=== PATIENT | male | born 1945 | race Caucasian/White ===

== ENCOUNTER → 2016-09-14 | Outpatient (REF) | payer MEDICARE, OTHER ==
[~2016-09-14] MED LIST: /ATOR40TA PO; ACTO45TA15 PO; ASPI81TA85 PO; BENA20TA2 PO; GLIP5TAB2 PO; LASI40TA PO; METF500T PO; METO100T PO
[2016-09-14 17:45] LABS: MEAN CORPUSCULAR HEMOGLOBIN 33.4 pg (27.0-33.0); MEAN CORPUSCULAR HGB CONC 33.9 g/dl (32.0-36.5); MEAN CORPUSCULAR VOLUME 98.6 fl (80.0-96.0); RED CELL DISTRIBUTION WIDTH 12.6 % (11.5-14.5); WHITE BLOOD COUNT 14.5 K/mm3 (4.0-10.0)
[2016-09-14 17:55] LABS: ALBUMIN 3.9 GM/DL (3.2-5.2); ALBUMIN/GLOBULIN RATIO 1.03 (1.00-1.93); CREATININE FOR GFR 1.82 MG/DL (0.70-1.30); GLOMERULAR FILTRATION RATE 39.5 (>49); POTASSIUM SERUM 4.5 MEQ/L (3.5-5.1); TOTAL PROTEIN 7.7 GM/DL (6.4-8.2)
== END ==
LOC: M SFHCPLAZ 15:28
PROVIDERS: ATTEND Internal Medicine
DX: N18.3 Chronic kidney disease, stage 3 (moderate) (principal); E11.9 Type 2 diabetes mellitus without complications

== ENCOUNTER → 2016-09-29 | Outpatient (REF) | payer MEDICARE, OTHER ==
[2016-09-29 12:07] LABS: CALCIUM LEVEL 9.1 MG/DL (8.8-10.2); CREATININE FOR GFR 1.44 MG/DL (0.70-1.30); GLOMERULAR FILTRATION RATE 51.8 (>49); MAGNESIUM LEVEL 1.9 MG/DL (1.8-2.4)
== END ==
LOC: M SFHCPLAZ 10:14
PROVIDERS: ATTEND Internal Medicine
DX: N18.3 Chronic kidney disease, stage 3 (moderate) (principal)

== ENCOUNTER → 2017-02-23 | Outpatient (REF) | payer MEDICARE, OTHER ==
[2017-02-23 13:45] LABS: ALBUMIN 4.2 GM/DL (3.2-5.2); ALBUMIN/GLOBULIN RATIO 1.27 (1.00-1.93); BILIRUBIN,TOTAL 0.6 MG/DL (0.2-1.0); CALCIUM LEVEL 9.5 MG/DL (8.8-10.2); CREATININE FOR GFR 1.7 MG/DL (0.70-1.30); GLOMERULAR FILTRATION RATE 42.8 (>49); MAGNESIUM LEVEL 1.7 MG/DL (1.8-2.4); TOTAL PROTEIN 7.5 GM/DL (6.4-8.2)
== END ==
LOC: M SFHCPLAZ 08:51
PROVIDERS: ATTEND Internal Medicine
DX: N18.3 Chronic kidney disease, stage 3 (moderate) (principal); E11.40 Type 2 diabetes mellitus with diabetic neuropathy, unspecified; I12.9 Hypertensive chronic kidney disease with stage 1 through stage 4 chronic kidney disease, or unspecified chronic kidney disease

== ENCOUNTER → 2017-11-30 | Outpatient (REF) | payer MEDICARE, OTHER ==
[2017-11-30 12:11] LABS: HEMOGLOBIN 10.9 g/dl (14.0-18.0); MEAN CORPUSCULAR HEMOGLOBIN 32.3 pg (27.0-33.0); MEAN CORPUSCULAR HGB CONC 32.1 g/dl (32.0-36.5); MEAN CORPUSCULAR VOLUME 100.9 fl (80.0-96.0); PLATELET COUNT, AUTOMATED 271 10^3/uL (150-450); RED BLOOD COUNT 3.37 10^6/uL (4.30-6.10); RED CELL DISTRIBUTION WIDTH 14.1 % (11.5-14.5); WHITE BLOOD COUNT 9.1 10^3/uL (4.0-10.0)
[2017-11-30 12:36] LABS: ALBUMIN 3.8 GM/DL (3.2-5.2); ALBUMIN/GLOBULIN RATIO 1.23 (1.00-1.93); ALKALINE PHOSPHATASE 103 U/L (45-117); ALT/SGPT 12 U/L (12-78); ANION GAP 6 MEQ/L (8-16); AST/SGOT 21 U/L (7-37); BILIRUBIN,TOTAL 0.4 MG/DL (0.2-1.0); BLOOD UREA NITROGEN 27 MG/DL (7-18); CALCIUM LEVEL 8.8 MG/DL (8.8-10.2); CARBON DIOXIDE LEVEL 28 MEQ/L (21-32); CHLORIDE LEVEL 105 MEQ/L (98-107); CREATININE FOR GFR 1.55 MG/DL (0.70-1.30); GLOMERULAR FILTRATION RATE 47.4 (>42); GLUCOSE, FASTING 128 MG/DL (70-100); MAGNESIUM LEVEL 1.6 MG/DL (1.8-2.4); POTASSIUM SERUM 4.9 MEQ/L (3.5-5.1); SODIUM LEVEL 139 MEQ/L (136-145); TOTAL PROTEIN 6.9 GM/DL (6.4-8.2); URIC ACID 5.2 MG/DL (3.5-7.2)
[2017-11-30 14:16] LABS: ESTIMATED AVERAGE GLUCOSE 197 MG/DL (60-110); HEMOGLOBIN A1c 8.5 %
== END ==
LOC: M SFHCPLAZ 08:04
DX: N18.3 Chronic kidney disease, stage 3 (moderate) (principal); I10 Essential (primary) hypertension; E11.40 Type 2 diabetes mellitus with diabetic neuropathy, unspecified; E79.0 Hyperuricemia without signs of inflammatory arthritis and tophaceous disease
CPT/HCPCS: 83735

== ENCOUNTER → 2017-12-06 | Outpatient (REF) | payer MEDICARE, OTHER ==
[2017-12-06 12:18] LABS: FOLATE 10.5 NG/ML; VITAMIN B12 LEVEL 899 PG/ML
[2017-12-06 12:19] LABS: FERRITIN 160 NG/ML (26-388); IRON (FE) 81 UG/DL (65-175); PERCENT SATURATION 25.3 % (19.7-50.0); TOTAL IRON BINDING CAPACITY 320 UG/DL (250-450)
== END ==
LOC: M SFHCPLAZ 09:53
DX: D64.9 Anemia, unspecified (principal)
CPT/HCPCS: 82746

== ENCOUNTER → 2018-03-31 | Outpatient (REF) | payer MEDICARE, OTHER ==
[2018-03-31 12:41] LABS: HEMATOCRIT 35.1 % (42.0-52.0); HEMOGLOBIN 11.5 g/dl (13.5-17.5); MEAN CORPUSCULAR HEMOGLOBIN 32.9 pg (27.0-33.0); MEAN CORPUSCULAR HGB CONC 32.8 g/dl (32.0-36.5); MEAN CORPUSCULAR VOLUME 100.3 fl (80.0-96.0); PLATELET COUNT, AUTOMATED 310 10^3/uL (150-450); RED CELL DISTRIBUTION WIDTH 13.3 % (11.5-14.5); WHITE BLOOD COUNT 9.7 10^3/uL (4.0-10.0)
[2018-03-31 12:50] LABS: ALBUMIN 3.8 GM/DL (3.2-5.2); ALBUMIN/GLOBULIN RATIO 1.03 (1.00-1.93); ALKALINE PHOSPHATASE 103 U/L (45-117); ALT/SGPT 13 U/L (12-78); ANION GAP 7 MEQ/L (8-16); AST/SGOT 25 U/L (7-37); BILIRUBIN,TOTAL 0.5 MG/DL (0.2-1.0); BLOOD UREA NITROGEN 32 MG/DL (7-18); CALCIUM LEVEL 9.3 MG/DL (8.8-10.2); CARBON DIOXIDE LEVEL 29 MEQ/L (21-32); CHLORIDE LEVEL 103 MEQ/L (98-107); CHOLESTEROL LEVEL 90 MG/DL (<200); CHOLESTEROL RISK RATIO 2.903 (<5); CREATININE FOR GFR 1.62 MG/DL (0.70-1.30); GLOMERULAR FILTRATION RATE 45.1 (>42); GLUCOSE, FASTING 138 MG/DL (70-100); HDL CHOLESTEROL 31 MG/DL (>40); LDL CHOLESTEROL 35.8 MG/DL (<100); MAGNESIUM LEVEL 1.8 MG/DL (1.8-2.4); NON-HDL-C 59 MG/DL; POTASSIUM SERUM 5.1 MEQ/L (3.5-5.1); SODIUM LEVEL 139 MEQ/L (136-145); TOTAL PROTEIN 7.5 GM/DL (6.4-8.2); TRIGLYCERIDES LEVEL 116 MG/DL (<150)
[2018-03-31 13:19] LABS: ESTIMATED AVERAGE GLUCOSE 192 MG/DL (60-110); HEMOGLOBIN A1c 8.3 %
[2018-03-31 13:35] LABS: MALB URINE SIEMENS 11.5 MG/L; MAU/CREAT RATIO 10.8 MCG/MG (0.0-30.0)
== END ==
LOC: M SFHCPLAZ 09:18
DX: D64.9 Anemia, unspecified (principal); E11.40 Type 2 diabetes mellitus with diabetic neuropathy, unspecified; I25.10 Atherosclerotic heart disease of native coronary artery without angina pectoris
CPT/HCPCS: 83735

== ENCOUNTER → 2018-08-08 | Outpatient (REF) | payer MEDICARE, OTHER ==
[2018-08-08 10:50] LABS: HEMATOCRIT 34.3 % (42.0-52.0); HEMOGLOBIN 10.9 g/dl (13.5-17.5); MEAN CORPUSCULAR HEMOGLOBIN 32.4 pg (27.0-33.0); MEAN CORPUSCULAR HGB CONC 31.8 g/dl (32.0-36.5); MEAN CORPUSCULAR VOLUME 102.1 fl (80.0-96.0); PLATELET COUNT, AUTOMATED 304 10^3/uL (150-450); RED BLOOD COUNT 3.36 10^6/uL (4.30-6.10); RED CELL DISTRIBUTION WIDTH 12.9 % (11.5-14.5); WHITE BLOOD COUNT 11.1 10^3/uL (4.0-10.0)
[2018-08-08 10:53] LABS: ALBUMIN 4.5 GM/DL (3.2-5.2); ALBUMIN/GLOBULIN RATIO 1.32 (1.00-1.93); ALKALINE PHOSPHATASE 89 U/L (45-117); ALT/SGPT 15 U/L (12-78); ANION GAP 6 MEQ/L (8-16); AST/SGOT 24 U/L (7-37); BILIRUBIN,TOTAL 0.5 MG/DL (0.2-1.0); BLOOD UREA NITROGEN 50 MG/DL (7-18); CALCIUM LEVEL 9.7 MG/DL (8.8-10.2); CARBON DIOXIDE LEVEL 26 MEQ/L (21-32); CHLORIDE LEVEL 105 MEQ/L (98-107); CREATININE FOR GFR 2.22 MG/DL (0.70-1.30); GLOMERULAR FILTRATION RATE 31.2 (>42); GLUCOSE, FASTING 162 MG/DL (70-100); MAGNESIUM LEVEL 1.5 MG/DL (1.8-2.4); POTASSIUM SERUM 5.8 MEQ/L (3.5-5.1); SODIUM LEVEL 137 MEQ/L (136-145); TOTAL PROTEIN 7.9 GM/DL (6.4-8.2)
[2018-08-08 11:01] LABS: PTH INTACT 102.7 PG/ML (18.5-88.0)
[2018-08-08 11:30] LABS: ESTIMATED AVERAGE GLUCOSE 180 MG/DL (60-110); HEMOGLOBIN A1c 7.9 %
== END ==
LOC: M SFHCPLAZ 08:06
DX: D64.9 Anemia, unspecified (principal); N18.3 Chronic kidney disease, stage 3 (moderate); I12.9 Hypertensive chronic kidney disease with stage 1 through stage 4 chronic kidney disease, or unspecified chronic kidney disease; E11.40 Type 2 diabetes mellitus with diabetic neuropathy, unspecified
CPT/HCPCS: 83735

== ENCOUNTER → 2018-08-15 | Outpatient (REF) | payer MEDICARE, OTHER ==
[2018-08-15 15:54] LABS: CALCIUM LEVEL 9.2 MG/DL (8.8-10.2); CREATININE FOR GFR 1.98 MG/DL (0.70-1.30); GLOMERULAR FILTRATION RATE 35.7 (>42); POTASSIUM SERUM 5.2 MEQ/L (3.5-5.1)
== END ==
LOC: M SFHCPLAZ 11:36
PROVIDERS: ATTEND Internal Medicine
DX: N18.3 Chronic kidney disease, stage 3 (moderate) (principal)
CPT/HCPCS: 36415; 80048; G0463

== ENCOUNTER → 2018-12-27 | Outpatient (REF) | payer MEDICARE, OTHER ==
[~2018-12-27] MED LIST changes: -/ATOR40TA PO; +LIPI1TAB2 PO
[2018-12-27 10:44] LABS: HEMATOCRIT 32.7 % (42.0-52.0); HEMOGLOBIN 10.7 g/dl (13.5-17.5); MEAN CORPUSCULAR HEMOGLOBIN 32.7 pg (27.0-33.0); MEAN CORPUSCULAR HGB CONC 32.7 g/dl (32.0-36.5); PLATELET COUNT, AUTOMATED 297 10^3/uL (150-450); RED BLOOD COUNT 3.27 10^6/uL (4.30-6.10); WHITE BLOOD COUNT 9.9 10^3/uL (4.0-10.0)
[2018-12-27 11:04] LABS: HEMOGLOBIN A1c 8.3 %
[2018-12-27 11:18] LABS: ALBUMIN 4.5 GM/DL (3.2-5.2); BILIRUBIN,TOTAL 0.7 MG/DL (0.2-1.0); CALCIUM LEVEL 9.5 MG/DL (8.8-10.2); CREATININE FOR GFR 2.09 MG/DL (0.70-1.30); GLOMERULAR FILTRATION RATE 33.5 (>42); MAGNESIUM LEVEL 1.6 MG/DL (1.8-2.4); POTASSIUM SERUM 5.5 MEQ/L (3.5-5.1); TOTAL PROTEIN 7.6 GM/DL (6.4-8.2)
[2018-12-27 11:21] LABS: PTH INTACT 118.4 PG/ML (18.5-88.0)
[2018-12-27 11:33] LABS: MALB URINE SIEMENS 8.5 MG/L
== END ==
LOC: M SFHCPLAZ 08:02
PROVIDERS: ATTEND Internal Medicine
DX: D64.9 Anemia, unspecified (principal); I12.9 Hypertensive chronic kidney disease with stage 1 through stage 4 chronic kidney disease, or unspecified chronic kidney disease; E11.40 Type 2 diabetes mellitus with diabetic neuropathy, unspecified; N18.3 Chronic kidney disease, stage 3 (moderate)

== ENCOUNTER 2019-03-28 16:39 | Emergency (ER) | payer MEDICARE, OTHER ==
[~2019-03-28] VITALS: Ht 162.6 cm; Wt 68.2 kg
[2019-03-28 18:59] LABS: BASO # 0.1 10^3/uL (0.0-0.2); BASO % 0.6 % (0.0-1.0); EOS # 0.6 10^3/uL (0.0-0.50); HEMOGLOBIN 9.6 g/dl (13.5-17.5); LYMPH # 2.5 10^3/uL (1.5-4.5); LYMPH % 25.6 % (24.0-44.0); MEAN CORPUSCULAR HEMOGLOBIN 33.7 pg (27.0-33.0); MEAN CORPUSCULAR HGB CONC 33.1 g/dl (32.0-36.5); MEAN CORPUSCULAR VOLUME 101.8 fl (80.0-96.0); MONO # 1.3 10^3/uL (0.0-0.8); MONO % 13.1 % (0.0-5.0); NEUTROPHILS # 5.3 10^3/uL (1.8-7.7); NEUTROPHILS % 54.2 % (36.0-66.0); PLATELET COUNT, AUTOMATED 323 10^3/uL (150-450); RED BLOOD COUNT 2.85 10^6/uL (4.30-6.10); WHITE BLOOD COUNT 9.7 10^3/uL (4.0-10.0)
[2019-03-28 19:10] LABS: INR 1.02; PROTHROMBIN TIME 13.1 SECONDS (11.8-14.0)
[2019-03-28 19:11] LABS: PARTIAL THROMBOPLASTIN TIME 32.8 SECONDS (25.0-38.4)
[2019-03-28] MEDS ORDERED: NS 1,000 ML IV ONE (19:15)
[2019-03-28 19:35] LABS: ALBUMIN 4.4 GM/DL (3.2-5.2); ALT/SGPT 14 U/L (12-78); BILIRUBIN,DIRECT 0.2 MG/DL (0.0-0.2); BILIRUBIN,TOTAL 0.4 MG/DL (0.2-1.0); CK-MB VALUE MASS 2.7 NG/ML (<3.6); CPK CREATINE PHOSPHOKINASE 155 U/L (39-308); LIPASE 540 U/L (73-393); MB/CK RELATIVE INDEX 1.74 (< OR =4); THYROID STIMULATING HORMONE 0.918 uIU/ML (0.358-3.740); TOTAL PROTEIN 8.2 GM/DL (6.4-8.2); TROPONIN I < 0.02 NG/ML (< 0.10)
--- NOTE | 2019-03-28 19:40 | REP ---
HISTORY: Abdominal pain. COMPARISON: 04/14/2013 FINDINGS: The superior mediastinal structures are midline. The cardiac silhouette is unremarkable in size, shape and position. The diaphragmatic surfaces of the lungs are regular and the costophrenic angles are clear. The pulmonary cotto are clear. The imaged osseous structures are intact. Note is again made of previous median sternotomy, status quo. IMPRESSION: There is no acute cardiopulmonary disease. Electronically Signed by Alverto Fry DO 03/28/2019 07:46 P
[2019-03-28 20:00] VITALS: BP 154/70
--- NOTE | 2019-03-29 20:39 | ECGEPIP ---
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
== END 2019-03-28 21:03 | disposition home or self-care (01) ==
LOC: M ED 16:39
DX: I95.1 Orthostatic hypotension (principal); R00.1 Bradycardia, unspecified; I44.0 Atrioventricular block, first degree; I25.10 Atherosclerotic heart disease of native coronary artery without angina pectoris; E11.9 Type 2 diabetes mellitus without complications; I10 Essential (primary) hypertension; N18.3 Chronic kidney disease, stage 3 (moderate); Z95.1 Presence of aortocoronary bypass graft; Z87.891 Personal history of nicotine dependence; Z79.82 Long term (current) use of aspirin; Z79.84 Long term (current) use of oral hypoglycemic drugs; Z79.899 Other long term (current) drug therapy

== ENCOUNTER → 2019-03-29 | Outpatient (CLI) | payer MEDICARE, OTHER ==
[2019-03-29 13:49] LABS: CALCIUM LEVEL 8.9 MG/DL (8.8-10.2); CREATININE FOR GFR 2.92 MG/DL (0.70-1.30); GLOMERULAR FILTRATION RATE 22.8 (>42); POTASSIUM SERUM 5.7 MEQ/L (3.5-5.1)
== END ==
LOC: M LAB 12:13
PROVIDERS: ATTEND Internal Medicine
DX: E86.0 Dehydration (principal)

== ENCOUNTER → 2019-04-02 | Outpatient (REF) | payer MEDICARE, OTHER ==
[2019-04-02 15:40] LABS: CALCIUM LEVEL 9.3 MG/DL (8.8-10.2); CREATININE FOR GFR 2.87 MG/DL (0.70-1.30); GLOMERULAR FILTRATION RATE 23.2 (>42)
== END ==
LOC: M SFHCPLAZ 13:36
PROVIDERS: ATTEND Internal Medicine
DX: N18.3 Chronic kidney disease, stage 3 (moderate) (principal); Z87.448 Personal history of other diseases of urinary system
CPT/HCPCS: 80048; 83735; G0463

== ENCOUNTER → 2019-04-05 | Outpatient (CLI) | payer MEDICARE, OTHER ==
--- NOTE | 2019-04-05 14:08 | REP ---
Clinical: Evidence for atherosclerotic disease with prior endarterectomy and left sided stent. Comparison: 09/26/2012 Technique: Nye scale and color Doppler evaluation using linear high frequency transducer Findings: Two-dimensional nye scale and color images demonstrate moderate mixed atheromatous plaquing (left greater than right). Normal laminar flow is maintained bilaterally and arterial wave patterns are appreciated with moderate spectral broadening. Normal flow direction is appreciated in the bilateral vertebral arteries. RIGHT (cm/s) LEFT (cm/s) ICA peak systolic velocity 69.7 106.0 ICA diastolic velocity 6.7 35.3 ECA peak systolic velocity 71.0 83.2 CCA peak systolic velocity 77.7 84.2 ICA/CCA ratio 0.97 1.26 Impression: Bilateral atheromatous plaquing. Set standards suggest narrowing in the left internal carotid artery at less than 50% range. Electronically Signed by Andrea Saldana MD 04/05/2019 02:00 P
== END ==
LOC: M RAD 13:04
PROVIDERS: ATTEND Internal Medicine
DX: I65.23 Occlusion and stenosis of bilateral carotid arteries (principal)

== ENCOUNTER → 2019-04-06 | Outpatient (REF) | payer MEDICARE, OTHER ==
[2019-04-06 12:52] LABS: CALCIUM LEVEL 8.6 MG/DL (8.8-10.2); CREATININE FOR GFR 2.49 MG/DL (0.70-1.30); GLOMERULAR FILTRATION RATE 27.4 (>42); POTASSIUM SERUM 4.8 MEQ/L (3.5-5.1)
== END ==
LOC: M SFHCPLAZ 09:18
PROVIDERS: ATTEND Internal Medicine
DX: N18.3 Chronic kidney disease, stage 3 (moderate) (principal); Z87.448 Personal history of other diseases of urinary system

== ENCOUNTER → 2019-06-08 | Outpatient (REF) | payer MEDICARE, OTHER ==
[2019-06-08 11:33] LABS: HEMOGLOBIN A1c 7.2 %
[2019-06-08 11:44] LABS: HEMATOCRIT 28.8 % (42.0-52.0); HEMOGLOBIN 9.2 g/dl (13.5-17.5); MEAN CORPUSCULAR HEMOGLOBIN 34.5 pg (27.0-33.0); MEAN CORPUSCULAR HGB CONC 31.9 g/dl (32.0-36.5); MEAN CORPUSCULAR VOLUME 107.9 fl (80.0-96.0); PLATELET COUNT, AUTOMATED 287 10^3/uL (150-450); RED BLOOD COUNT 2.67 10^6/uL (4.30-6.10); WHITE BLOOD COUNT 9.4 10^3/uL (4.0-10.0)
[2019-06-08 11:54] LABS: BILIRUBIN,TOTAL 0.5 MG/DL (0.2-1.0); CALCIUM LEVEL 8.8 MG/DL (8.8-10.2); CHOLESTEROL RISK RATIO 2.097 (<5); CREATININE FOR GFR 3.17 MG/DL (0.70-1.30); GLOMERULAR FILTRATION RATE 20.7 (>42); MAGNESIUM LEVEL 1.9 MG/DL (1.8-2.4); PERCENT SATURATION 28.3 % (19.7-50.0); POTASSIUM SERUM 5.8 MEQ/L (3.5-5.1); TOTAL PROTEIN 7.2 GM/DL (6.4-8.2); URIC ACID 4.7 MG/DL (3.5-7.2)
[2019-06-08 12:39] LABS: PTH INTACT 101.9 PG/ML (18.5-88.0)
[2019-06-08 12:40] LABS: FOLATE 14.9 NG/ML
== END ==
LOC: M SFHCPLAZ 08:16
PROVIDERS: ATTEND Internal Medicine
DX: D64.9 Anemia, unspecified (principal); I12.9 Hypertensive chronic kidney disease with stage 1 through stage 4 chronic kidney disease, or unspecified chronic kidney disease; E11.40 Type 2 diabetes mellitus with diabetic neuropathy, unspecified; I25.10 Atherosclerotic heart disease of native coronary artery without angina pectoris; N18.3 Chronic kidney disease, stage 3 (moderate); E79.0 Hyperuricemia without signs of inflammatory arthritis and tophaceous disease

== ENCOUNTER → 2019-06-20 | Outpatient (CLI) | payer MEDICARE, OTHER ==
--- NOTE | 2019-06-20 14:43 | REP ---
Urinary tract sonography: History: Type 2 diabetes with neuropathy. Findings: Renal cortical echogenicity pattern appears somewhat increased consistent with chronic medical renal disease. There is no evidence of hydronephrosis on either side. No renal mass lesion is observed. There are multiple renal cysts bilaterally. On the right these include cysts measuring 1.8 cm in the upper pole, 1.9 cm in the lower pole, and 2.2 cm in greatest diameter in the mid pole. On the left there is a 1.8 cm cyst at the upper pole. In the left renal hilar region there is a 2.9 x 2.1 x 1.9 cm cyst. Impression: Increased cortical echogenicity. Multiple bilateral small renal cysts the largest of which measures 2.9 cm in greatest diameter. Otherwise negative. Electronically Signed by Yosvany Collazo MD 06/20/2019 05:44 P
--- NOTE | 2019-06-20 15:30 | REP ---
LIMITED PELVIC, BLADDER SONOGRAPHY: HISTORY: Diabetes with neuropathy. FINDINGS: Prevoid bladder volume is calculated at 309 mL. Visualized bladder recio are smooth. Postvoid residual is 26 mL, 8%. No extravesical lesion is seen. Emptying ureteral jets are confirmed on color Doppler interrogation of the bladder lumen bilaterally. IMPRESSION: No abnormality noted. Electronically Signed by Yosvany Collazo MD 06/20/2019 05:46 P
== END ==
LOC: M RAD 08:57
PROVIDERS: ATTEND Internal Medicine
DX: N28.1 Cyst of kidney, acquired (principal); E11.40 Type 2 diabetes mellitus with diabetic neuropathy, unspecified

== ENCOUNTER → 2019-06-21 | Outpatient (CLI) | payer MEDICARE, OTHER ==
[2019-06-21 09:41] LABS: CALCIUM LEVEL 9.1 MG/DL (8.8-10.2); GLOMERULAR FILTRATION RATE 22.1 (>42); PHOSPHORUS LEVEL 3.4 MG/DL (2.5-4.9); POTASSIUM SERUM 5.8 MEQ/L (3.5-5.1)
[2019-06-21 11:37] LABS: PTH INTACT 119.3 PG/ML (18.5-88.0)
== END ==
LOC: M LAB 08:38
PROVIDERS: ATTEND Internal Medicine
DX: N18.3 Chronic kidney disease, stage 3 (moderate) (principal)

== ENCOUNTER → 2019-11-06 | Outpatient (REF) | payer MEDICARE, OTHER ==
[2019-11-06 17:41] LABS: HEMATOCRIT 30.7 % (42.0-52.0); HEMOGLOBIN 9.9 g/dl (13.5-17.5); MEAN CORPUSCULAR HEMOGLOBIN 33.6 pg (27.0-33.0); MEAN CORPUSCULAR HGB CONC 32.2 g/dl (32.0-36.5); MEAN CORPUSCULAR VOLUME 104.1 fl (80.0-96.0); PLATELET COUNT, AUTOMATED 301 10^3/uL (150-450); RED BLOOD COUNT 2.95 10^6/uL (4.30-6.10); WHITE BLOOD COUNT 10.5 10^3/uL (4.0-10.0)
[2019-11-06 17:52] LABS: ALBUMIN 4.2 GM/DL (3.2-5.2); BILIRUBIN,TOTAL 0.5 MG/DL (0.2-1.0); CALCIUM LEVEL 9.1 MG/DL (8.8-10.2); CREATININE FOR GFR 2.35 MG/DL (0.70-1.30); GLOMERULAR FILTRATION RATE 29.2 (>42); MAGNESIUM LEVEL 1.7 MG/DL (1.8-2.4); PHOSPHORUS LEVEL 3.1 MG/DL (2.5-4.9); POTASSIUM SERUM 3.9 MEQ/L (3.5-5.1); TOTAL PROTEIN 7.5 GM/DL (6.4-8.2)
[2019-11-06 18:00] LABS: PTH INTACT 160.3 PG/ML (18.5-88.0)
[2019-11-06 18:12] LABS: HEMOGLOBIN A1c 7.9 %
== END ==
LOC: M SFHCPLAZ 14:26
PROVIDERS: ATTEND Internal Medicine
DX: E11.40 Type 2 diabetes mellitus with diabetic neuropathy, unspecified (principal); I12.9 Hypertensive chronic kidney disease with stage 1 through stage 4 chronic kidney disease, or unspecified chronic kidney disease; N18.3 Chronic kidney disease, stage 3 (moderate); D64.9 Anemia, unspecified
CPT/HCPCS: 36415; 80053; 83036; 83735; 83970; 84100; 85027; G0463

== ENCOUNTER → 2020-05-28 | Outpatient (CLI) | payer MEDICARE, OTHER ==
[2020-05-28 16:26] LABS: BASO # 0.1 10^3/uL (0.0-0.2); BASO % 0.6 % (0.0-1.0); EOS # 0.6 10^3/uL (0.0-0.5); EOS % 4.6 % (0.0-3.0); HEMATOCRIT 34.1 % (42.0-52.0); HEMOGLOBIN 10.7 g/dl (13.5-17.5); LYMPH # 2.9 10^3/uL (1.5-5.0); LYMPH % 22.8 % (24.0-44.0); MEAN CORPUSCULAR HEMOGLOBIN 32.5 pg (27.0-33.0); MEAN CORPUSCULAR HGB CONC 31.4 g/dl (32.0-36.5); MEAN CORPUSCULAR VOLUME 103.6 fl (80.0-96.0); MONO # 1.5 10^3/uL (0.0-0.8); MONO % 11.4 % (0.0-5.0); NEUTROPHILS # 7.6 10^3/uL (1.5-8.5); NEUTROPHILS % 59.9 % (36.0-66.0); PLATELET COUNT, AUTOMATED 311 10^3/uL (150-450); RED BLOOD COUNT 3.29 10^6/uL (4.30-6.10); WHITE BLOOD COUNT 12.8 10^3/uL (4.0-10.0)
[2020-05-28 16:40] LABS: ALBUMIN 4.3 GM/DL (3.2-5.2); ALT/SGPT 15 U/L (12-78); BILIRUBIN,TOTAL 0.4 MG/DL (0.2-1.0); BLOOD UREA NITROGEN 39 MG/DL (7-18); CALCIUM LEVEL 11.2 MG/DL (8.8-10.2); CARBON DIOXIDE LEVEL 28 MEQ/L (21-32); CHLORIDE LEVEL 107 MEQ/L (98-107); CHOLESTEROL LEVEL 100 MG/DL (<200); CHOLESTEROL RISK RATIO 2.564 (<5); CREATININE FOR GFR 2.75 MG/DL (0.70-1.30); GLOMERULAR FILTRATION RATE 24.3 (>42); GLUCOSE, FASTING 203 MG/DL (70-100); HDL CHOLESTEROL 39 MG/DL (>40); LDL CHOLESTEROL 31 MG/DL (<100); NON-HDL-C 61 MG/DL; POTASSIUM SERUM 5.5 MEQ/L (3.5-5.1); SODIUM LEVEL 137 MEQ/L (136-145); THYROID STIMULATING HORMONE 0.909 uIU/ML (0.358-3.740); TOTAL PROTEIN 7.5 GM/DL (6.4-8.2); TRIGLYCERIDES LEVEL 150 MG/DL (<150)
[2020-05-28 16:41] LABS: HEMOGLOBIN A1c 8.2 %; PTH INTACT < 6.3 PG/ML (18.5-88.0); VITAMIN B12 LEVEL 1163 PG/ML (247-911)
[2020-05-28 16:57] LABS: CREATININE, URINE 64.6 MG/DL; MAU/CREAT RATIO 66.5 MCG/MG (0.0-30.0)
== END ==
LOC: M PLALAB 13:51
PROVIDERS: ATTEND Internal Medicine
DX: E11.40 Type 2 diabetes mellitus with diabetic neuropathy, unspecified (principal); I12.9 Hypertensive chronic kidney disease with stage 1 through stage 4 chronic kidney disease, or unspecified chronic kidney disease; N18.3 Chronic kidney disease, stage 3 (moderate); I25.10 Atherosclerotic heart disease of native coronary artery without angina pectoris; G62.9 Polyneuropathy, unspecified; I73.9 Peripheral vascular disease, unspecified; D64.9 Anemia, unspecified

== ENCOUNTER → 2020-11-19 | Outpatient (REF) | payer MEDICARE, OTHER ==
[2020-11-19 13:36] LABS: BASO # 0.1 10^3/uL (0.0-0.2); BASO % 0.6 % (0.0-1.0); EOS # 0.6 10^3/uL (0.0-0.5); EOS % 5.6 % (0.0-3.0); HEMATOCRIT 35.9 % (42.0-52.0); HEMOGLOBIN 11.4 g/dl (13.5-17.5); LYMPH # 2.1 10^3/uL (1.5-5.0); LYMPH % 18.7 % (24.0-44.0); MEAN CORPUSCULAR HEMOGLOBIN 32.6 pg (27.0-33.0); MEAN CORPUSCULAR HGB CONC 31.8 g/dl (32.0-36.5); MEAN CORPUSCULAR VOLUME 102.6 fl (80.0-96.0); MONO # 1.5 10^3/uL (0.0-0.8); MONO % 13.3 % (2.0-8.0); NEUTROPHILS % 61.2 % (36.0-66.0); PLATELET COUNT, AUTOMATED 330 10^3/uL (150-450)
[2020-11-19 13:55] LABS: WHITE BLOOD COUNT 11.4 10^3/uL (4.0-10.0)
[2020-11-19 14:35] LABS: ALBUMIN 4.4 GM/DL (3.2-5.2); BILIRUBIN,TOTAL 0.6 MG/DL (0.2-1.0); CALCIUM LEVEL 9.7 MG/DL (8.8-10.2); CREATININE FOR GFR 2.88 MG/DL (0.70-1.30); POTASSIUM SERUM 5.7 MEQ/L (3.5-5.1); PTH INTACT 112.3 PG/ML (18.5-88.0); TOTAL PROTEIN 7.9 GM/DL (6.4-8.2); URIC ACID 5.7 MG/DL (3.5-7.2)
[2020-11-19 14:41] LABS: HEMOGLOBIN A1c 8.1 %
[2020-11-19 14:54] LABS: MALB URINE SIEMENS 67.7 MG/L; MAU/CREAT RATIO 92.7 MCG/MG (0.0-30.0)
== END ==
LOC: M SFHCPLAZ 10:57
PROVIDERS: ATTEND Internal Medicine
DX: E11.40 Type 2 diabetes mellitus with diabetic neuropathy, unspecified (principal); I12.9 Hypertensive chronic kidney disease with stage 1 through stage 4 chronic kidney disease, or unspecified chronic kidney disease; N18.30 Chronic kidney disease, stage 3 unspecified; E79.0 Hyperuricemia without signs of inflammatory arthritis and tophaceous disease; D64.9 Anemia, unspecified
CPT/HCPCS: 36415; 80053; 82043; 83036; 83735; 83970; 84550; 85025; G0463

== ENCOUNTER → 2021-03-16 | Outpatient (CLI) | payer MEDICARE, OTHER | LOC: M PLALAB 16:26 | PROVIDERS: ATTEND Internal Medicine | DX: D64.9 Anemia, unspecified (principal); I12.9 Hypertensive chronic kidney disease with stage 1 through stage 4 chronic kidney disease, or unspecified chronic kidney disease; E11.40 Type 2 diabetes mellitus with diabetic neuropathy, unspecified; N18.30 Chronic kidney disease, stage 3 unspecified ==

== ENCOUNTER → 2021-03-16 | Outpatient (REF) | payer MEDICARE, OTHER ==
[2021-03-16 17:31] LABS: BASO # 0.1 10^3/uL (0.0-0.2); BASO % 0.5 % (0.0-1.0); EOS # 0.5 10^3/uL (0.0-0.5); EOS % 3.5 % (0.0-3.0); HEMATOCRIT 34.8 % (42.0-52.0); HEMOGLOBIN 11.2 g/dl (13.5-17.5); LYMPH # 3.5 10^3/uL (1.5-5.0); LYMPH % 26.5 % (24.0-44.0); MEAN CORPUSCULAR HEMOGLOBIN 32.7 pg (27.0-33.0); MEAN CORPUSCULAR HGB CONC 32.2 g/dl (32.0-36.5); MEAN CORPUSCULAR VOLUME 101.8 fl (80.0-96.0); MONO # 1.6 10^3/uL (0.0-0.8); NEUTROPHILS # 7.4 10^3/uL (1.5-8.5); NEUTROPHILS % 56.4 % (36.0-66.0); PLATELET COUNT, AUTOMATED 320 10^3/uL (150-450); RED BLOOD COUNT 3.42 10^6/uL (4.30-6.10)
[2021-03-16 17:51] LABS: ALBUMIN 4.4 GM/DL (3.2-5.2); BILIRUBIN,TOTAL 0.8 MG/DL (0.2-1.0); CALCIUM LEVEL 9.7 MG/DL (8.8-10.2); CHOLESTEROL RISK RATIO 2.941 (<5); CREATININE FOR GFR 2.76 MG/DL (0.70-1.30); GLOMERULAR FILTRATION RATE 24.2 (>42); MAGNESIUM LEVEL 1.7 MG/DL (1.8-2.4); PHOSPHORUS LEVEL 3.3 MG/DL (2.5-4.9); POTASSIUM SERUM 4.9 MEQ/L (3.5-5.1); TOTAL PROTEIN 7.9 GM/DL (6.4-8.2)
[2021-03-16 17:59] LABS: PTH INTACT 81.1 PG/ML (18.5-88.0)
[2021-03-16 18:15] LABS: HEMOGLOBIN A1c 7.8 %
== END ==
LOC: M SFHCPLAZ 15:35
PROVIDERS: ATTEND Internal Medicine
DX: D64.9 Anemia, unspecified (principal); I12.9 Hypertensive chronic kidney disease with stage 1 through stage 4 chronic kidney disease, or unspecified chronic kidney disease; E11.40 Type 2 diabetes mellitus with diabetic neuropathy, unspecified; N18.30 Chronic kidney disease, stage 3 unspecified
CPT/HCPCS: 80053; 80061; 83036; 83735; 83970; 84100; 85025; G0463

== ENCOUNTER 2021-06-02 16:07 | Inpatient (IN) | payer MEDICARE, OTHER ==
[~2021-06-02] VITALS: Ht 162.6 cm; Wt 66.5 kg
[2021-06-02] MEDS: FAMOTIDINE 20 MG TAB PO SCH (04:06)
[2021-06-02] MEDS ORDERED: NS 1,980 ML in IV 1 EA IV ONE (22:30)
[2021-06-02 22:49] LABS: BASO # 0.1 10^3/uL (0.0-0.2); BASO % 0.6 % (0.0-1.0); EOS # 0.2 10^3/uL (0.0-0.5); EOS % 1.3 % (0.0-3.0); HEMOGLOBIN 12.4 g/dl (13.5-17.5); LYMPH # 1.4 10^3/uL (1.5-5.0); LYMPH % 11.1 % (24.0-44.0); MEAN CORPUSCULAR HEMOGLOBIN 32.5 pg (27.0-33.0); MEAN CORPUSCULAR HGB CONC 34.4 g/dl (32.0-36.5); MEAN CORPUSCULAR VOLUME 94.5 fl (80.0-96.0); MONO # 1.5 10^3/uL (0.0-0.8); MONO % 12.4 % (2.0-8.0); NEUTROPHILS # 8.9 10^3/uL (1.5-8.5); NEUTROPHILS % 72.9 % (36.0-66.0); PLATELET COUNT, AUTOMATED 356 10^3/uL (150-450); RED BLOOD COUNT 3.81 10^6/uL (4.30-6.10); WHITE BLOOD COUNT 12.3 10^3/uL (4.0-10.0)
--- NOTE | 2021-06-02 23:04 | REPVR ---
PROCEDURE INFORMATION: Exam: CT Head Without Contrast Exam date and time: 06/02/2021 10:43 PM Age: 75 years old Clinical indication: Injury or trauma; Fall; Blunt trauma (contusions or hematomas) TECHNIQUE: Imaging protocol: Computed tomography of the head without contrast. Radiation optimization: All CT scans at this facility use at least one of these dose optimization techniques: automated exposure control; mA and/or kV adjustment per patient size (includes targeted exams where dose is matched to clinical indication); or iterative reconstruction. COMPARISON: US Duplex,carotid (complete) 04/05/2019 1:16 PM FINDINGS: Brain: Encephalomalacia/gliosis within the right MCA territory, consistent with an old infarct. This involves the right frontal and parietal lobes. A tiny calcification is identified in this area of encephalomalacia. Artifact limits evaluation of the james. No acute intracranial hemorrhage is visualized. The white-pascual differentiation is otherwise preserved demonstrating no acute territorial type infarct. There are periventricular foci of white matter hypodensity, likely representing small vessel ischemic disease. The acuity of the white matter disease is indeterminate. There is no midline shift. Cerebral ventricles: There is mild prominence of the ventricles and sulci, compatible with atrophy. Paranasal sinuses: Poor aeration of the frontal sinuses. No fluid levels. Mastoid air cells: No mastoid effusion. Orbital cavity: Bilateral orbital lens implants. Vasculature: Intracranial atherosclerosis visualized. Bones/joints: The calvarium demonstrates no evidence for a depressed fracture. Soft tissues: Unremarkable. IMPRESSION: 1. No acute intracranial hemorrhage or acute territorial type infarct. 2. Encephalomalacia/gliosis within the right MCA territory, consistent with an old infarct. 3. There are periventricular foci of white matter hypodensity, likely representing small vessel ischemic disease. 4. Mild atrophy. Electronically signed by: Alvaro Shay On 06/02/2021 23:04:07 PM
--- NOTE | 2021-06-02 23:08 | REPVR ---
PROCEDURE INFORMATION: Exam: XR Chest Exam date and time: 06/02/2021 10:06 PM Age: 75 years old Clinical indication: Other: Weakness; Additional info: Weakness/htn TECHNIQUE: Imaging protocol: XR of the chest. Views: 2 views. COMPARISON: CR Chest, 2 view PA, Lat 03/28/2019 6:13 PM FINDINGS: Lungs: There is no visualized lung consolidation. The lungs are clear. Pleural spaces: No pleural effusion. No pneumothorax. Heart/Mediastinum: Multiple mediastinal clips are visualized. No cardiomegaly. Vasculature: Atherosclerotic changes are visualized within the abdomen. Diaphragm: Mild elevation or eventration of the right hemidiaphragm. This is stable. Bones/joints: Sternotomy wires are identified, multiple which are discontinuous and stable compared to the previous exam. Hypertrophic degenerative changes are noted involving the spine. Other findings: Additional clips are identified within the soft tissues of the neck. IMPRESSION: 1. There is no visualized lung consolidation. 2. Mild elevation or eventration of the right hemidiaphragm. This is stable. 3. Additional findings described above. Electronically signed by: Alvaro Shay On 06/02/2021 23:07:49 PM
[2021-06-02 23:20] LABS: ACETONE/KETONE 25.97 MG/DL (<2.81); BILIRUBIN,DIRECT 0.4 MG/DL (0.0-0.2); CALCIUM LEVEL 9.4 MG/DL (8.8-10.2); CK-MB VALUE MASS 3.8 NG/ML (<3.6); CREATININE FOR GFR 3.22 MG/DL (0.70-1.30); GLOMERULAR FILTRATION RATE 20.2 (>42); MB/CK RELATIVE INDEX 2.75 (< OR =4); TOTAL PROTEIN 7.9 GM/DL (6.4-8.2); TROPONIN I 0.02 NG/ML (< 0.10)
[2021-06-02] MEDS ORDERED: HumuLIN R (REGULAR) INSULIN (NovoLIN R) **100U/ML** PER UNIT IV ONE (23:40)
[2021-06-03 00:04] LABS: HEMOGLOBIN A1c > 14.0 %
[2021-06-03] MEDS ORDERED: INSULIN IV RATE CHANGE DOCUMENTATION ML/HR XX SCH ×2 (00:40→04:00)
[2021-06-03] MEDS ORDERED: INSULIN REGULAR IN 0.9 % NACL 100 UNIT in IV 1 EA IV SCH ×6 (00:40→16:20)
[2021-06-03 01:27] LABS: RSV AMPLIFICATION NEGATIVE (NEGATIVE)
[2021-06-03] MEDS ORDERED: MOM 30ML SUSPENSION UDC PO PRN (01:35)
[2021-06-03] MEDS ORDERED: ACETAMINOPHEN TAB 650MG DOSE (2X325MG) PO PRN (01:35)
[2021-06-03] MEDS ORDERED: MAALOX 30 ML SUSP *UDC PO PRN (01:35)
[2021-06-03] MEDS ORDERED: KCL 20MEQ in NS 1000ML 1,000 ML IV SCH (01:40)
--- NOTE | 2021-06-03 01:41 | HPEPDOC ---
[facility] Medical History & Physical Date of Admission Jun 03, 2021 Date of Service: Jun 03, 2021 History and Physical CHIEF COMPLAINT: falls HISTORY OF PRESENT ILLNESS: 75-year-old male with a past medical history of type 2 diabetes with diabetic neuropathy, CAD, hypertension, CKD stage III, peripheral neuropathy, PAD, depression, anemia presented to the ER complaining of approximately 2-week history of falling and unsteady gait. He attributes this to slipping on well wearing his socks on the linoleum floor. He had a negative CT scan of the head without contrast. He denies any shortness of breath palpitations chest pain lightheadedness blurred vision nausea vomiting or diarrhea. Upon arrival to the ED, he was found to have a blood sugar of 864, with elevated beta hydroxybutyrate, sodium of 116, creatinine of 3.22. His BNP was elevated to 1671. Troponin was normal 0.02. A1c found to be over 14.0. Had a mild leukocytosis of 12.3 with a hemoglobin of 12.4. Patient received 5 units of regular insulin and was given 1.5 L normal saline bolus. Patient will be admitted to ICU under hospitalist service for the management of HHS. PAST MEDICAL HISTORY: TYPE 2 DIABETES MELLITUS WITH DIABETIC NEUROPATHY, WITHOUT LONG-TERM CURRENT USE OF INSULIN CORONARY ARTERY DISEASE HYPERTENSION WITH RENAL DISEASE CHRONIC KIDNEY DISEASE, STAGE 3 (MODERATE) PERIPHERAL SENSORY NEUROPATHY PERIPHERAL ARTERY DISEASE DEPRESSION CAROTID ARTERY DISEASE ANEMIA, UNSPECIFIED TYPE HYPERURICEMIA OSTEOARTHRITIS HEARTBURN WEIGHT LOSS PAST SURGICAL HISTORY: FATHER AGE 67 OF DIABETIC AND HYPERTENSIVE COMPLICATIONS, ALCOHOLISM. MOTHER AGE 54 OF DIABETES AND HEART DISEASE. THREE SISTERS--ONE HAS DEMENTIA--AND 2 CHILDREN ARE HEALTHY SOCIAL HISTORY: Patient denies smoking Patient denies etoh use Patient denies illicit drug use FAMILY HISTORY: FATHER AGE 67 OF DIABETIC AND HYPERTENSIVE COMPLICATIONS, ALCOHOLISM. MOTHER AGE 54 OF DIABETES AND HEART DISEASE. THREE SISTERS--ONE HAS DEMENTIA--AND 2 CHILDREN ARE HEALTHY ALLERGIES: Please see below. REVIEW OF SYSTEMS: 10 point ROS conducted, relevant findings are noted in HPI. HOME MEDICATIONS: Please see below. PHYSICAL EXAMINATION: VITAL SIGNS: please see below General: NAD, comfortable HEENT: PERRLA, EOMI, sclerae clear Neck: supple, normal ROM, no JVD Respiratory: lungs CTAB, no wheeze, no rales, no crackles CVS: RRR, normal S1, S2, no murmurs Abdo: soft, no masses, no hepatosplenomegaly, BS+, no rebound tenderness Extremities: no edema, pulses 2+ MSK: no joint deformities, normal ROM Neuro: no focal neuro deficits, moving all 4 extremities, CN2-12 intact. Strength 5/5 in all 4 extremities. No nystagmus. Psych: calm, cooperative, AAO x 3 LABORATORY DATA: See below. IMAGING: CT head wo contrast (06/02/21): IMPRESSION: 1. No acute intracranial hemorrhage or acute territorial type infarct. 2. Encephalomalacia/gliosis within the right MCA territory, consistent with an old infarct. 3. There are periventricular foci of white matter hypodensity, likely representing small vessel ischemic disease. 4. Mild atrophy. CXR (06/02/21): FINDINGS: Lungs: There is no visualized lung consolidation. The lungs are clear. Pleural spaces: No pleural effusion. No pneumothorax. Heart/Mediastinum: Multiple mediastinal clips are visualized. No cardiomegaly. Vasculature: Atherosclerotic changes are visualized within the abdomen. Diaphragm: Mild elevation or eventration of the right hemidiaphragm. This is stable. Bones/joints: Sternotomy wires are identified, multiple which are discontinuous and stable compared to the previous exam. Hypertrophic degenerative changes are noted involving the spine. Other findings: Additional clips are identified within the soft tissues of the neck. IMPRESSION: 1. There is no visualized lung consolidation. 2. Mild elevation or eventration of the right hemidiaphragm. This is stable. 3. Additional findings described above. MICROBIOLOGY: Please see below. ASSESSMENT: 75-year-old male with a past medical history of type 2 diabetes with diabetic neuropathy, CAD, hypertension, CKD stage III, peripheral neuropathy, PAD, depression, anemia, presented to the ER with a history of frequent falling, diagnosed with HH S based on blood sugars above 850 with elevated beta hydroxybutyrate. Patient admitted to ICU with an insulin infusion. . PLAN: HHS: BG 864. b-hydroxybutarate > 25. Cr 3.22. AG 12. Was given 5 units regular insulin in ER. Start insulin drip. c/w IV NS at 175 cc/hr with 20 meq KCL. Check BMP, Mag, Phos q4h. Plan to transition to SC insulin once BG < 250, and able to tolerate diet. Will hold oral diabetic meds. LIZZETH on CKD: Cr 3.22. Baseline appears to be ~2.7, although limited data available. Likely pre-renal losses 2/2 HHS. C/w IVF hydration. Monitor BMP. Avoid nephrotoxins. Hx of CAD: c/w ASA. C/w lipitor 40 mg qhs. GERD: c/w famotidine. Suspected CHF: appears euvolemic at this time. c/w furosemide 40 mg 3x week. Meotpolol ER 100 mg daily. Check 2D echo. Anxiety/depression: resume alprazolam 0.25 mg BID prn. Resume escitalopram 20 mg PO daily. Falls: CT head negative for acute CVA. Hx of falls prolonged, would suggest mechanical. PT/OT eval ordered. Dispo: pending clinical improvement. Vital Signs Vital Signs Date Time Temp Pulse Resp B/P (MAP) Pulse Ox O2 Delivery O2 Flow Rate FiO2 06/02/21 23:58 97.1 06/02/21 23:52 68 16 155/70 (98) 100 Room Air Laboratory Data Labs 24H Laboratory Tests 2 06/02/21 21:37: Immature Granulocyte % (Auto) 1.7, Neutrophils (%) (Auto) 72.9H, Lymphocytes (%) (Auto) 11.1L, Monocytes (%) (Auto) 12.4H, Eosinophils (%) (Auto) 1.3, Basophils (%) (Auto) 0.6, Neutrophils # (Auto) 8.9H, Lymphocytes # (Auto) 1.4L, Monocytes # (Auto) 1.5H, Eosinophils # (Auto) 0.2, Basophils # (Auto) 0.1, Nucleated Red Blood Cells % (auto) 0.0, Anion Gap 12, Glomerular Filtration Rate 20.2L, Osmolality 320H, Calcium Level 9.4, Total Bilirubin 1.0, Direct Bilirubin 0.4H, Aspartate Amino Transf (AST/SGOT) 17, Alanine Aminotransferase (ALT/SGPT) 13, Alkaline Phosphatase 148H, Total Creatine Kinase 138, Creatine Kinase MB 3.8H, Creatine Kinase MB Relative Index 2.75, Troponin I 0.02, KU-Cmm-V-Type Natriuretic Peptide 1671H, Total Protein 7.9, Albumin 4.0, Albumin/Globulin Ratio 1.0, Lipase 497H, B-Hydroxybutyrate 25.97H 06/02/21 22:19: Urine Color YELLOW, Urine Appearance HAZY, Urine pH 5.0, Urine Specific [place] 1.018, Urine Protein NEGATIVE, Urine Glucose (UA) 3+H, Urine Ketones TRACEH, Urine Blood 1+H, Urine Nitrite NEGATIVE, Urine Bilirubin NEGATIVE, Urine Urobilinogen 0.2, Urine Leukocyte Esterase NEGATIVE, Urine WBC (Auto) 0, Urine RBC (Auto) 1, Urine Hyaline Casts (Auto) 0, Urine Bacteria (Auto) NEGATIVE, Urine Squamous Epithelial Cells 0, Urine Mucus (Auto) SMALL, Urine Sperm (Auto) , Estimated Mean Plasma Glucose , Hemoglobin A1c > 14.0, Lactic Acid Level 2.0 06/03/21 00:27: Coronavirus (COVID-19)(PCR) NEGATIVE, Influenza Type A (RT-PCR) NEGATIVE, Influenza Type B (RT-PCR) NEGATIVE, Respiratory Syncytial Virus (PCR) NEGATIVE 06/03/21 00:49: Bedside Glucose Confirm (Misc) 604*H CBC/BMP Laboratory Tests 06/02/21 21:37 Home Medications Scheduled Aspirin (Aspirin EC) 81 Mg Tablet.dr, 81 MG PO 3XW TUESDAY, TUESDAY AND TUESDAY Atorvastatin Calcium (Atorvastatin Calcium) 40 Mg Tablet, 40 MG PO QHS Bimatoprost (Lumigan) 0.01% 2.5ML Drops, 2 DROP OU QHS Calcitriol (Rocaltrol) 0.5 Mcg Capsule, 0.5 MCG PO DAILY Cyanocobalamin (Vitamin B-12) (Vitamin B-12) 1,000 Mcg Tablet, 1,000 MCG PO DAILY Escitalopram Oxalate (Lexapro) 20 Mg Tablet, 20 MG PO DAILY Famotidine (Famotidine) 40 Mg Tablet, 40 MG PO QHS Furosemide (Furosemide) 40 Mg Tablet, 40 MG PO 3XW TUESDAY, TUESDAY AND TUESDAY Glipizide (Glipizide) 10 Mg Tablet, 10 MG PO BID Linagliptin (Tradjenta) 5 Mg Tablet, 5 MG PO DAILY Magnesium Oxide (Magnesium Oxide) 250 Mg Tablet, 250 MG PO DAILY Metoprolol Succinate (Metoprolol Succinate) 100 Mg Tab.er.24h, 100 MG PO DAILY Montelukast Sodium (Montelukast Sodium) 10 Mg Tablet, 10 MG PO QHS allopurinoL (allopurinoL) 300 Mg Tablet, 150 MG PO QHS Scheduled PRN Alprazolam (Alprazolam) 0.25 Mg Tablet, 0.25 MG PO BID PRN for ANXIETY Allergies Coded Allergies: No Known Allergies (Unverified , 03/28/19) SUSANNA URBAN MD Jun 03, 2021 01:41
[2021-06-03 02:20] LABS: FREE T4 1.15 NG/DL (0.76-1.46); THYROID STIMULATING HORMONE 1.19 uIU/ML (0.358-3.740)
[2021-06-03] MEDS ORDERED: ALPR0.25 PO (02:35)
[2021-06-03] MEDS ORDERED: CYAN100050 PO (02:35)
[2021-06-03] MEDS ORDERED: ASPI-161 PO (02:35)
[2021-06-03] MEDS ORDERED: GLIP10TA6 PO (02:35)
[2021-06-03] MEDS ORDERED: TRAD5TAB PO (02:35)
[2021-06-03] MEDS ORDERED: MONT10TA10 PO (02:35)
[2021-06-03] MEDS ORDERED: ROCA0.5C PO (02:35)
[2021-06-03] MEDS ORDERED: ALLO300T2 PO (02:35)
[2021-06-03] MEDS ORDERED: BIMA01SOL OU (02:35)
[2021-06-03] MEDS ORDERED: FURO40TA2 PO (02:35)
[2021-06-03] MEDS ORDERED: FAMO40TA3 PO (02:35)
[2021-06-03] MEDS ORDERED: ESSE250T PO (02:35)
[2021-06-03] MEDS ORDERED: ATOR40TA75 PO (02:35)
[2021-06-03] MEDS ORDERED: METO1TAB33 PO (02:35)
[2021-06-03] MEDS ORDERED: LEXA1TAB2 PO (02:35)
[2021-06-03] MEDS ORDERED: HOME MED LIST COMPLETE! XX SCH (02:40)
[2021-06-03] MEDS ORDERED: ALPRAZolam 0.25 MG TAB PO PRN (02:55)
[2021-06-03] MEDS ORDERED: PILL CUTTER 1 EACH XX PRN (03:20)
[2021-06-03 03:35] LABS: CALCIUM LEVEL 9.1 MG/DL (8.8-10.2); CREATININE FOR GFR 2.77 MG/DL (0.70-1.30); GLOMERULAR FILTRATION RATE 24.1 (>42); MAGNESIUM LEVEL 2.3 MG/DL (1.8-2.4); PHOSPHORUS LEVEL 2.8 MG/DL (2.5-4.9); POTASSIUM SERUM 4.2 MEQ/L (3.5-5.1)
[2021-06-03] MEDS: ATORVASTATIN 20 MG TAB PO SCH ×2 (04:06→20:47)
[2021-06-03] MEDS: MONTELUKAST 10 MG TAB PO SCH ×2 (04:06→20:50)
[2021-06-03] MEDS: KCL 20MEQ IN D5/0.45NS 1000ML 1,000 ML IV SCH ×2 (04:11→11:50)
[2021-06-03] MEDS ORDERED: LEVEMIR (INSULIN DETEMIR) 1 UNITS/0.01ML SC ONE (05:05)
[2021-06-03] MEDS: HEPARIN SOD (PORCINE) 5000UNITS/ML 1ML VIAL/SYRINGE SC SCH ×3 (05:56→21:59)
[2021-06-03 06:53] LABS: CALCIUM LEVEL 9.1 MG/DL (8.8-10.2); CREATININE FOR GFR 2.57 MG/DL (0.70-1.30); GLOMERULAR FILTRATION RATE 26.2 (>42); MAGNESIUM LEVEL 2.3 MG/DL (1.8-2.4); PHOSPHORUS LEVEL 2.2 MG/DL (2.5-4.9); POTASSIUM SERUM 3.9 MEQ/L (3.5-5.1)
[2021-06-03] MEDS: FUROSEMIDE 40 MG TAB PO SCH (09:06)
[2021-06-03] MEDS: ASPIRIN 81MG ENTERIC TABLET PO SCH (09:06)
[2021-06-03] MEDS: METOPROLOL SUCC (TopROL XL) 100MG *XL* TAB PO SCH (09:07)
[2021-06-03] MEDS: ESCITALOPRAM OXALATE 10 MG TAB (LEXAPRO) PO SCH (09:07)
[2021-06-03 11:00] LABS: CALCIUM LEVEL 8.7 MG/DL (8.8-10.2); CREATININE FOR GFR 2.59 MG/DL (0.70-1.30); MAGNESIUM LEVEL 2.2 MG/DL (1.8-2.4); PHOSPHORUS LEVEL 2.9 MG/DL (2.5-4.9); POTASSIUM SERUM 4.7 MEQ/L (3.5-5.1)
[2021-06-03] MEDS ORDERED: GLUCAGON INJ 1MG VIAL SC PRN (11:20)
[2021-06-03] MEDS ORDERED: DEXTROSE 50% 50 ML SYRINGE IV PRN (11:20)
[2021-06-03] MEDS ORDERED: GLUCOSE 4GM CHEW TABLET PO PRN (11:20)
[2021-06-03] MEDS: CALCITRIOL 0.25 MCG CAP (S0169) PO SCH (11:40)
[2021-06-03] MEDS ORDERED: HumaLOG INSULIN (NovoLOG) PER UNIT SC SCH (12:00)
[2021-06-03 13:29] LABS: CALCIUM LEVEL 8.8 MG/DL (8.8-10.2); CREATININE FOR GFR 2.81 MG/DL (0.70-1.30); GLOMERULAR FILTRATION RATE 23.7 (>42); POTASSIUM SERUM 3.8 MEQ/L (3.5-5.1)
[2021-06-03] MEDS: NS 1,000 ML IV SCH (13:43)
[2021-06-03 15:16] VITALS: BP 176/84
[2021-06-03 16:00] VITALS: BP 127/60
[2021-06-03 16:24] LABS: ALBUMIN 3.2 GM/DL (3.2-5.2); BILIRUBIN,TOTAL 0.5 MG/DL (0.2-1.0); CALCIUM LEVEL 8.5 MG/DL (8.8-10.2); CK-MB VALUE MASS 3.1 NG/ML (<3.6); CREATININE FOR GFR 2.79 MG/DL (0.70-1.30); GLOMERULAR FILTRATION RATE 23.9 (>42); MB/CK RELATIVE INDEX 2.28 (< OR =4); POTASSIUM SERUM 4.5 MEQ/L (3.5-5.1); TOTAL PROTEIN 6.3 GM/DL (6.4-8.2); TROPONIN I 0.03 NG/ML (< 0.10)
[2021-06-03] MEDS: INSULIN IV RATE CHANGE DOCUMENTATION ML/HR XX SCH ×4 (17:14→22:09)
[2021-06-03 20:00] VITALS: BP 135/64
[2021-06-03] MEDS: FAMOTIDINE 20 MG TAB PO SCH (20:47)
[2021-06-03] MEDS: allopurinoL 300 MG TAB PO SCH (20:52)
[2021-06-03 21:00] VITALS: BP 148/73
[2021-06-03 21:50] LABS: CREATININE FOR GFR 2.72 MG/DL (0.70-1.30); GLOMERULAR FILTRATION RATE 24.6 (>42); POTASSIUM SERUM 3.7 MEQ/L (3.5-5.1)
[2021-06-03 22:00] VITALS: BP 113/59
[2021-06-03 23:00] VITALS: BP 118/61
[2021-06-04] VITALS (10 sets, daily range): BP systolic 103–161; BP diastolic 60–74
[2021-06-04] MEDS: NS 1,000 ML IV SCH (00:23)
[2021-06-04] MEDS: INSULIN IV RATE CHANGE DOCUMENTATION ML/HR XX SCH ×3 (02:05→06:16)
[2021-06-04] MEDS ORDERED: D5W/0.45% SODIUM CHLORIDE 1,000 ML IV SCH (02:10)
[2021-06-04 05:20] LABS: HEMATOCRIT 29.4 % (42.0-52.0); MEAN CORPUSCULAR HEMOGLOBIN 32.3 pg (27.0-33.0); MEAN CORPUSCULAR HGB CONC 34.7 g/dl (32.0-36.5); PLATELET COUNT, AUTOMATED 276 10^3/uL (150-450); RED BLOOD COUNT 3.16 10^6/uL (4.30-6.10); WHITE BLOOD COUNT 11.5 10^3/uL (4.0-10.0)
[2021-06-04 05:32] LABS: CALCIUM LEVEL 8.5 MG/DL (8.8-10.2); CREATININE FOR GFR 2.26 MG/DL (0.70-1.30); GLOMERULAR FILTRATION RATE 30.4 (>42); POTASSIUM SERUM 3.4 MEQ/L (3.5-5.1)
[2021-06-04 05:34] LABS: HEMOGLOBIN 10.2 g/dl (13.5-17.5)
[2021-06-04] MEDS: HEPARIN SOD (PORCINE) 5000UNITS/ML 1ML VIAL/SYRINGE SC SCH ×3 (06:07→21:07)
[2021-06-04] MEDS ORDERED: POTASSIUM CHLORIDE 10% LIQ 20 MEQ/15 ML UDC PO ONE (06:30)
[2021-06-04] MEDS ORDERED: LEVEMIR (INSULIN DETEMIR) 1 UNITS/0.01ML SC ONE (06:35)
[2021-06-04] MEDS: HumaLOG INSULIN (NovoLOG) PER UNIT SC SCH ×4 (07:30→20:06)
--- NOTE | 2021-06-04 07:38 | ECGEPIP ---
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
--- NOTE | 2021-06-04 08:18 | REP ---
INDICATION: crackles. COMPARISON: Comparison chest x-ray June 02, 2021. TECHNIQUE: Portable upright AP chest radiograph. FINDINGS: Patient is status post prior median sternotomy. Also there are surgical clips in the soft tissues of the neck bilaterally. The lungs are well inflated and clear. The pleural angles are sharp. Heart size is normal. The thoracic aorta is calcific and tortuous. Pulmonary vasculature is not increased. IMPRESSION: No active disease. <Electronically signed by Luke Collazo > 06/04/21 [id number]
[2021-06-04] MEDS: METOPROLOL SUCC (TopROL XL) 100MG *XL* TAB PO SCH (09:49)
[2021-06-04] MEDS: CALCITRIOL 0.25 MCG CAP (S0169) PO SCH (09:50)
[2021-06-04] MEDS: ESCITALOPRAM OXALATE 10 MG TAB (LEXAPRO) PO SCH (09:50)
--- NOTE | 2021-06-04 11:15 | IPNPDOC ---
Text Note Date of Service The patient was seen on 06/04/21. NOTE Subjective: Patient seen and examined at bedside. No acute overnight events reported. Patient voices no new medical complaints this morning. Objective: Vital Signs: reviewed and within normal limits General: NAD, lying comfortably in bed HEENT: NC/AT, EOMI Neck: supple, no masses Chest: lungs CTA B/L Heart: +S1S2, RRR Abd: soft, NT, ND, +BS Ext: no edema Skin: no rashes MSK: full ROM at large joints Neuro: no gross focal deficits Psych: AAOx3 A/P: 75-year-old male with PMHx including DM2 with neuropathy, CAD, HTN, CKDIII, peripheral neuropathy, PAD, depression, anemia, presented to the ER with a history of frequent falling, diagnosed with HHS based on blood sugars above 850 with elevated beta hydroxybutyrate. Patient admitted to ICU for insulin gtt. #HHS - insulin gtt overnight - transitioning to sc insulin today - previously was on orals - reviewing his chart, it seems he has been moderately well controlled up until a few months ago - patient denies any changes in diet or medication non-compliance - no other source of infection or obvious etiology for his hyperglycemia #elevated creatinine/CKD - improving #CAD/HTN - continue home meds #GERD - c/w famotidine. #?CHF - c/w furosemide 40 mg 3x week. Meotpolol ER 100 mg daily #anxiety/depression: resume alprazolam 0.25 mg BID prn. Resume escitalopram 20 mg PO daily. #Falls: CT head negative for acute CVA. Hx of falls appears to be mechanical. PT/OT eval ordered. Dispo: pending clinical improvement. VS,Fishbone, I+O VS, Fishbone, I+O Laboratory Tests 06/03/21 11:34 06/03/21 15:30 06/03/21 21:13 06/04/21 05:00 Vital Signs Date Time Temp Pulse Resp B/P (MAP) Pulse Ox O2 Delivery O2 Flow Rate FiO2 06/04/21 10:00 73 20 127/60 (82) 99 Room Air 06/04/21 08:00 97.8 I&O- Last 24 Hours up to 6 AM 06/04/21 05:59 Intake Total 2397 ml Output Total 2475 ml Balance -78 ml LALDIN,ERMA S. MD Jun 04, 2021 11:14
[2021-06-04] MEDS ORDERED: LEVEMIR (INSULIN DETEMIR) 1 UNITS/0.01ML SC SCH (16:30)
[2021-06-04] MEDS ORDERED: HumaLOG INSULIN (NovoLOG) PER UNIT SC SCH (21:00)
[2021-06-04] MEDS: allopurinoL 300 MG TAB PO SCH (21:07)
[2021-06-04] MEDS: ATORVASTATIN 20 MG TAB PO SCH (21:07)
[2021-06-04] MEDS: MONTELUKAST 10 MG TAB PO SCH (21:07)
[2021-06-04] MEDS: FAMOTIDINE 20 MG TAB PO SCH (21:07)
[2021-06-05 00:02] VITALS: BP 140/69
[2021-06-05 04:00] VITALS: BP 157/75
[2021-06-05] MEDS: HumaLOG INSULIN (NovoLOG) PER UNIT SC SCH ×6 (04:02→19:51)
[2021-06-05 04:47] LABS: HEMOGLOBIN 9.9 g/dl (13.5-17.5); MEAN CORPUSCULAR HEMOGLOBIN 32.5 pg (27.0-33.0); MEAN CORPUSCULAR HGB CONC 34.1 g/dl (32.0-36.5); MEAN CORPUSCULAR VOLUME 95.1 fl (80.0-96.0); PLATELET COUNT, AUTOMATED 268 10^3/uL (150-450); RED BLOOD COUNT 3.05 10^6/uL (4.30-6.10); WHITE BLOOD COUNT 10.6 10^3/uL (4.0-10.0)
[2021-06-05 05:12] LABS: CREATININE FOR GFR 2.32 MG/DL (0.70-1.30); GLOMERULAR FILTRATION RATE 29.5 (>42); POTASSIUM SERUM 4.3 MEQ/L (3.5-5.1)
[2021-06-05] MEDS: HEPARIN SOD (PORCINE) 5000UNITS/ML 1ML VIAL/SYRINGE SC SCH ×3 (06:04→21:53)
[2021-06-05 08:00] VITALS: BP 142/72
[2021-06-05] MEDS ORDERED: LEVEMIR (INSULIN DETEMIR) 1 UNITS/0.01ML SC SCH (09:00)
[2021-06-05] MEDS: ASPIRIN 81MG ENTERIC TABLET PO SCH (09:53)
[2021-06-05] MEDS: FUROSEMIDE 40 MG TAB PO SCH (09:53)
[2021-06-05] MEDS: ESCITALOPRAM OXALATE 10 MG TAB (LEXAPRO) PO SCH (09:53)
[2021-06-05] MEDS: CALCITRIOL 0.25 MCG CAP (S0169) PO SCH (09:54)
[2021-06-05] MEDS: METOPROLOL SUCC (TopROL XL) 100MG *XL* TAB PO SCH (09:54)
[2021-06-05 12:00] VITALS: BP 154/99
--- NOTE | 2021-06-05 12:51 | IPNPDOC ---
Text Note Date of Service The patient was seen on 06/05/21. NOTE Subjective: Patient seen and examined at bedside. No acute overnight events reported. Patient voices no new medical complaints this morning. Objective: Vital Signs: reviewed General: NAD, lying comfortably in bed HEENT: NC/AT, EOMI Neck: supple, no masses Chest: lungs CTA B/L Heart: +S1S2, RRR Abd: soft, NT, ND, +BS Ext: no edema Skin: no rashes MSK: full ROM at large joints Neuro: no gross focal deficits Psych: AAOx3 A/P: 75-year-old male with PMHx including DM2 with neuropathy, CAD, HTN, CKDIII, peripheral neuropathy, PAD, depression, anemia, presented to the ER with a history of frequent falling, diagnosed with HHS based on blood sugars above 850 with elevated beta hydroxybutyrate. Patient admitted to ICU for insulin gtt. #HHS - moderate control with blood sugars now with BID basal insulin and q4h correction - previously was on orals - reviewing his chart, it seems he has been moderately well controlled up until a few months ago - patient denies any changes in diet or medication non-compliance - no other source of infection or obvious etiology for his hyperglycemia #elevated creatinine/CKD #CAD/HTN - continue home meds #GERD - c/w famotidine. #?CHF - c/w furosemide 40 mg 3x week. Metoprolol ER 100 mg daily #anxiety/depression: resume alprazolam 0.25 mg BID prn. Resume escitalopram 20 mg PO daily. #Falls: CT head negative for acute CVA. Hx of falls appears to be mechanical. PT/OT eval ordered. Dispo: discussed extensively with Leti Young, plan for downgrade to med/surg, continue with monitoring blood sugars, anticipating discharge with BID basal insulin dosing VS,Fishbone, I+O VS, Fishbone, I+O Laboratory Tests 06/05/21 04:26 Vital Signs Date Time Temp Pulse Resp B/P (MAP) Pulse Ox O2 Delivery O2 Flow Rate FiO2 06/05/21 12:00 98.1 74 18 154/99 (117) 100 Room Air I&O- Last 24 Hours up to 6 AM 06/05/21 05:59 Intake Total 1534.5 ml Output Total 1325 ml Balance 209.5 ml ERMA PAZ MD Jun 05, 2021 12:51
[2021-06-05 16:00] VITALS: BP 147/70
[2021-06-05 20:10] VITALS: BP 139/81
[2021-06-05] MEDS: ATORVASTATIN 20 MG TAB PO SCH (20:12)
[2021-06-05] MEDS: FAMOTIDINE 20 MG TAB PO SCH (20:12)
[2021-06-05] MEDS: MONTELUKAST 10 MG TAB PO SCH (20:12)
[2021-06-05] MEDS: allopurinoL 300 MG TAB PO SCH (20:12)
[2021-06-05] MEDS: LEVEMIR (INSULIN DETEMIR) 1 UNITS/0.01ML SC SCH (20:13)
[2021-06-06] MEDS: HumaLOG INSULIN (NovoLOG) PER UNIT SC SCH ×4 (00:15→12:57)
[2021-06-06 06:00] VITALS: BP 135/70
[2021-06-06] MEDS: HEPARIN SOD (PORCINE) 5000UNITS/ML 1ML VIAL/SYRINGE SC SCH ×2 (06:10→12:57)
[2021-06-06 07:20] LABS: HEMATOCRIT 32.1 % (42.0-52.0); HEMOGLOBIN 10.8 g/dl (13.5-17.5); MEAN CORPUSCULAR HEMOGLOBIN 32.3 pg (27.0-33.0); MEAN CORPUSCULAR HGB CONC 33.6 g/dl (32.0-36.5); MEAN CORPUSCULAR VOLUME 96.1 fl (80.0-96.0); PLATELET COUNT, AUTOMATED 295 10^3/uL (150-450); RED BLOOD COUNT 3.34 10^6/uL (4.30-6.10); WHITE BLOOD COUNT 10.1 10^3/uL (4.0-10.0)
[2021-06-06 07:34] LABS: CALCIUM LEVEL 9.4 MG/DL (8.8-10.2); CREATININE FOR GFR 2.27 MG/DL (0.70-1.30); GLOMERULAR FILTRATION RATE 30.3 (>42); POTASSIUM SERUM 3.8 MEQ/L (3.5-5.1)
[2021-06-06] MEDS: ESCITALOPRAM OXALATE 10 MG TAB (LEXAPRO) PO SCH (08:43)
[2021-06-06] MEDS: CALCITRIOL 0.25 MCG CAP (S0169) PO SCH (08:43)
[2021-06-06 08:46] VITALS: BP 121/65
[2021-06-06] MEDS: LEVEMIR (INSULIN DETEMIR) 1 UNITS/0.01ML SC SCH (08:46)
[2021-06-06] MEDS: METOPROLOL SUCC (TopROL XL) 100MG *XL* TAB PO SCH (08:46)
--- NOTE | 2021-06-06 10:39 | DS.PDOC ---
Discharge Summary General Date of Admission Jun 02, 2021 at 16:08 Date of Discharge 06/06/21 Discharge Summary PROCEDURES PERFORMED DURING STAY: [None]. DISCHARGE DIAGNOSES: #HHS #HTN COMPLICATIONS/CHIEF COMPLAINT: hyperosmolar hyperglycemia HISTORY OF PRESENT ILLNESS: 75-year-old male with a past medical history of type 2 diabetes with diabetic neuropathy, CAD, hypertension, CKD stage III, peripheral neuropathy, PAD, depression, anemia presented to the ER complaining of approximately 2-week history of falling and unsteady gait. He attributes this to slipping on well wearing his socks on the linoleum floor. He had a negative CT scan of the head without contrast. He denied any shortness of breath palpitations chest pain lightheadedness blurred vision nausea vomiting or diarrhea. Upon arrival to the ED, he was found to have a blood sugar of 864, with elevated beta hydroxybutyrate, sodium of 116, creatinine of 3.22. His BNP was elevated to 1671. Troponin was normal 0.02. A1c found to be over 14.0. Had a mild leukocytosis of 12.3 with a hemoglobin of 12.4. Patient received 5 units of regular insulin and was given 1.5 L normal saline bolus. Patient will be admitted to ICU under hospitalist service for the management of HHS. HOSPITAL COURSE: Patient was admitted for further evaluation and treatment. He required continuous insulin infusion to manage his hyperglycemia. He was successfully transitioned to subcutaneous insulin consisting of basal insulin with correction. No clear etiology for his hyperglycemia. He does note medical noncompliance and noncompliance with dietary restrictions. Case was discussed extensively with his who is a healthcare provider. His , Leti Young will be taking care of insulin needs including insulin, glucometer and ancillary supplies. DISCHARGE MEDICATIONS: Please see below. ALLERGIES: Please see below. PHYSICAL EXAMINATION ON DISCHARGE: Vital Signs: reviewed General: NAD, lying comfortably in bed HEENT: NC/AT, EOMI Neck: supple, no masses Chest: lungs CTA B/L Heart: +S1S2, RRR Abd: soft, NT, ND, +BS Ext: no edema Skin: no rashes MSK: full ROM at large joints Neuro: no gross focal deficits Psych: AAOx3 LABORATORY DATA: Please see below. ACTIVITY: [As tolerated]. DISPOSITION: . DISCHARGE INSTRUCTIONS: 1. Follow up PCP in 3-5 days DISCHARGE CONDITION: [Stable]. TIME SPENT ON DISCHARGE: 35 minutes. Vital Signs/I&Os Vital Signs Date Time Temp Pulse Resp B/P (MAP) Pulse Ox O2 Delivery O2 Flow Rate FiO2 06/06/21 08:46 75 121/65 06/06/21 06:00 98.4 16 98 Room Air I&O- Last 24 Hours up to 6 AM 06/06/21 06:00 Intake Total 1860 ml Output Total 1500 ml Balance 360 ml Laboratory Data Labs 24H Laboratory Tests 2 06/05/21 11:25: Bedside Glucose (Misc Panel) 319H 06/05/21 15:02: Bedside Glucose (Misc Panel) 314H 06/05/21 18:04: Bedside Glucose (Misc Panel) 221H 06/05/21 19:46: Bedside Glucose (Misc Panel) 244H 06/05/21 23:55: Bedside Glucose (Misc Panel) 171H 06/06/21 04:22: Bedside Glucose (Misc Panel) 119H 06/06/21 06:43: Nucleated Red Blood Cells % (auto) 0.0, Anion Gap 9, Glomerular Filtration Rate 30.3L, Calcium Level 9.4 06/06/21 07:56: Bedside Glucose (Misc Panel) 169H CBC/BMP Laboratory Tests 06/06/21 06:43 FSBS Laboratory Tests Test 06/05/21 11:25 06/05/21 15:02 06/05/21 18:04 06/05/21 19:46 Range/Units Bedside Glucose (Misc Panel) 319 314 221 244 83-110 MG/DL Test 06/05/21 23:55 06/06/21 04:22 06/06/21 07:56 Range/Units Bedside Glucose (Misc Panel) 171 119 169 83-110 MG/DL Microbiology Microbiology 06/03/21 Blood Culture - Preliminary, Resulted No Growth after 48 hours. All Specime... 06/03/21 Blood Culture - Preliminary, Resulted No Growth after 48 hours. All Specime... Discharge Medications Scheduled Aspirin (Aspirin EC) 81 Mg Tablet.dr, 81 MG PO 3XW, (Reported) TUESDAY, TUESDAY AND TUESDAY Atorvastatin Calcium (Atorvastatin Calcium) 40 Mg Tablet, 40 MG PO QHS, (Reported) Bimatoprost (Lumigan) 0.01% 2.5ML Drops, 2 DROP OU QHS, (Reported) Calcitriol (Rocaltrol) 0.5 Mcg Capsule, 0.5 MCG PO DAILY, (Reported) Cyanocobalamin (Vitamin B-12) (Vitamin B-12) 1,000 Mcg Tablet, 1,000 MCG PO DAILY, (Reported) Escitalopram Oxalate (Lexapro) 20 Mg Tablet, 20 MG PO DAILY, (Reported) Famotidine (Famotidine) 40 Mg Tablet, 40 MG PO QHS, (Reported) Furosemide (Furosemide) 40 Mg Tablet, 40 MG PO 3XW, (Reported) TUESDAY, TUESDAY AND TUESDAY Magnesium Oxide (Magnesium Oxide) 250 Mg Tablet, 250 MG PO DAILY, (Reported) Metoprolol Succinate (Metoprolol Succinate) 100 Mg Tab.er.24h, 100 MG PO DAILY, (Reported) Montelukast Sodium (Montelukast Sodium) 10 Mg Tablet, 10 MG PO QHS, (Reported) allopurinoL (allopurinoL) 300 Mg Tablet, 150 MG PO QHS, (Reported) Scheduled PRN Alprazolam (Alprazolam) 0.25 Mg Tablet, 0.25 MG PO BID PRN for ANXIETY, (Reported) Allergies Coded Allergies: No Known Allergies (Unverified , 03/28/19) ERMA PAZ MD Jun 06, 2021 10:39
== END 2021-06-06 15:18 | disposition home health service (06) | DRG 639 ==
LOC: M ED 16:07 → M ED INP 16:08 → ENRESERV 06-03 14:26 → M ICU 06-03 15:09 → M MSPAV 06-05 19:50
PROVIDERS: ADMIT Family Medicine; ATTEND Family Medicine
DX: E11.00 Type 2 diabetes mellitus with hyperosmolarity without nonketotic hyperglycemic-hyperosmolar coma (NKHHC) (principal); R29.6 Repeated falls; E11.42 Type 2 diabetes mellitus with diabetic polyneuropathy; I25.10 Atherosclerotic heart disease of native coronary artery without angina pectoris; I12.9 Hypertensive chronic kidney disease with stage 1 through stage 4 chronic kidney disease, or unspecified chronic kidney disease; N18.30 Chronic kidney disease, stage 3 unspecified; E11.22 Type 2 diabetes mellitus with diabetic chronic kidney disease; I73.9 Peripheral vascular disease, unspecified; F32.9 Major depressive disorder, single episode, unspecified; D63.1 Anemia in chronic kidney disease; Z74.09 Other reduced mobility; E79.0 Hyperuricemia without signs of inflammatory arthritis and tophaceous disease; M19.90 Unspecified osteoarthritis, unspecified site; K21.9 Gastro-esophageal reflux disease without esophagitis; Z79.84 Long term (current) use of oral hypoglycemic drugs; Z79.82 Long term (current) use of aspirin; Z79.899 Other long term (current) drug therapy; Z20.822 Contact with and (suspected) exposure to COVID-19; F41.9 Anxiety disorder, unspecified

== ENCOUNTER → 2022-01-08 | Outpatient (REF) | payer MEDICARE, OTHER ==
[~2022-01-08] MED LIST changes: +ALLO300T2 PO; +ALPR0.25 PO; +ASPI-161 PO; +ATOR40TA75 PO; +BIMA01SOL OU; +CYAN100050 PO; +ESSE250T PO; +FAMO40TA3 PO; +FURO40TA2 PO; +GLIP10TA6 PO; +LEXA1TAB2 PO; +METO1TAB33 PO; +MONT10TA97 PO; +ROCA0.5C PO; +TRAD5TAB PO
== END ==
LOC: M LAB REF 16:04
PROVIDERS: ATTEND Internal Medicine
DX: M10.9 Gout, unspecified (principal)

== ENCOUNTER 2023-07-27 20:47 | Inpatient (IN) | payer MEDICARE, OTHER ==
[~2023-07-27] VITALS: Ht 162.6 cm; Wt 58.3 kg
[~2023-07-27 20:47] MED LIST changes: +CYAN-1 PO; -CYAN100050 PO
[2023-07-27 21:17] VITALS: BP 208/91; TEMP 96.8; O2SAT 100
[2023-07-27 21:20] LABS: BASO # 0.1 10^3/uL (0.0-0.2); BASO % 0.7 % (0.0-1.0); EOS # 0.7 10^3/uL (0.0-0.5); EOS % 6.7 % (0.0-3.0); HEMATOCRIT 32.6 % (42.0-52.0); HEMOGLOBIN 10.7 g/dl (13.5-17.5); LYMPH # 3.4 10^3/uL (1.5-5.0); LYMPH % 31.8 % (24.0-44.0); MEAN CORPUSCULAR HEMOGLOBIN 34.1 pg (27.0-33.0); MEAN CORPUSCULAR HGB CONC 32.8 g/dl (32.0-36.5); MEAN CORPUSCULAR VOLUME 103.8 fl (80.0-96.0); MONO # 1.5 10^3/uL (0.0-0.8); MONO % 13.9 % (2.0-8.0); NEUTROPHILS # 4.9 10^3/uL (1.5-8.5); NEUTROPHILS % 46.5 % (36.0-66.0); PLATELET COUNT, AUTOMATED 233 10^3/uL (150-450); RED BLOOD COUNT 3.14 10^6/uL (4.30-6.10); WHITE BLOOD COUNT 10.6 10^3/uL (4.0-10.0)
[2023-07-27 21:41] LABS: CK-MB VALUE MASS 7.5 NG/ML (<3.6)
[2023-07-27 21:42] LABS: CALCIUM LEVEL 8.9 MG/DL (8.3-10.6); CREATININE FOR GFR 2.15 MG/DL (0.70-1.30); INR 1.02; POTASSIUM SERUM 4.3 MMOL/L (3.5-5.1); PROTHROMBIN TIME 13.1 SECONDS (12.5-14.5)
[2023-07-27 21:43] LABS: PARTIAL THROMBOPLASTIN TIME 28.5 SECONDS (24.8-34.2)
[2023-07-27 21:44] LABS: MB/CK RELATIVE INDEX 2.67 (< OR =4)
[2023-07-27 21:50] LABS: RSV AMPLIFICATION NEGATIVE (NEGATIVE)
[2023-07-27] MEDS ORDERED: LANTINJ4 SC (23:42)
[2023-07-27] MEDS ORDERED: PRESCAP PO (23:42)
[2023-07-27] MEDS ORDERED: FURO20TA2 PO (23:42)
[2023-07-27] MEDS ORDERED: HOME MED LIST COMPLETE! XX SCH (23:45)
[2023-07-27] MEDS ORDERED: ACETAMINOPHEN TAB 650MG DOSE (2X325MG) PO PRN (23:55)
[2023-07-28] VITALS (10 sets, daily range): BP systolic 131–200; BP diastolic 63–81; TEMP 97.6–98.1; O2SAT 96–99
[2023-07-28] MEDS ORDERED: GLUCAGON INJ 1MG VIAL SC PRN (00:05)
[2023-07-28] MEDS ORDERED: GLUCOSE 4GM CHEW TABLET PO PRN (00:05)
[2023-07-28] MEDS ORDERED: DEXTROSE 50% 50ML SYRINGE IV PRN (00:05)
[2023-07-28] MEDS ORDERED: PILL CUTTER 1 EACH XX PRN (02:15)
[2023-07-28] MEDS: HEPARIN SOD (PORCINE) 5000UNITS/ML 1ML VIAL/SYRINGE SC SCH ×2 (05:04→14:00)
[2023-07-28 06:06] LABS: HEMATOCRIT 30.6 % (42.0-52.0); MEAN CORPUSCULAR HEMOGLOBIN 33.8 pg (27.0-33.0); MEAN CORPUSCULAR HGB CONC 32.7 g/dl (32.0-36.5); MEAN CORPUSCULAR VOLUME 103.4 fl (80.0-96.0); PLATELET COUNT, AUTOMATED 223 10^3/uL (150-450); RED BLOOD COUNT 2.96 10^6/uL (4.30-6.10); WHITE BLOOD COUNT 8.8 10^3/uL (4.0-10.0)
[2023-07-28 06:28] LABS: HEMOGLOBIN A1c 7.7 % (4.0-6.0)
[2023-07-28 06:32] LABS: CALCIUM LEVEL 9.1 MG/DL (8.3-10.6); CHOLESTEROL RISK RATIO 2.8 (<5); CREATININE FOR GFR 2.21 MG/DL (0.70-1.30); HDL CHOLESTEROL 33.5 MG/DL (>40); LDL CHOLESTEROL 48.3 MG/DL (<100); NON-HDL-C 60.5 MG/DL
[2023-07-28] MEDS: INSULIN LISPRO (NovoLOG) PER UNIT SC SCH ×2 (07:30→11:53)
[2023-07-28] MEDS ORDERED: MAGNESIUM OXIDE 400MG TAB (MAG-OX) PO SCH (09:00)
[2023-07-28] MEDS ORDERED: ESCITALOPRAM OXALATE 10 MG TAB (LEXAPRO) PO SCH (09:00)
[2023-07-28] MEDS ORDERED: METOPROLOL SUCC (TopROL XL) 100MG *XL* TAB PO SCH (09:00)
[2023-07-28] MEDS ORDERED: CLOPIDOGREL 75 MG TAB PO SCH (09:00)
[2023-07-28] MEDS ORDERED: hydrALAZINE 20MG/ML 1ML VIAL IV STA (11:49)
[2023-07-28] MEDS ORDERED: CLOP75TA2 PO (13:50)
[2023-07-28] MEDS ORDERED: ATORVASTATIN 20 MG TAB PO SCH (21:00)
[2023-07-28] MEDS ORDERED: INSULIN LISPRO (NovoLOG) PER UNIT SC SCH (21:00)
[2023-07-28] MEDS ORDERED: LATANOPROST 0.005% OPHTH SOLN 2.5 ML OU SCH (21:00)
[2023-07-28] MEDS ORDERED: LEVEMIR (INSULIN DETEMIR) 1 UNITS/0.01ML SC SCH (21:00)
[2023-07-28] MEDS ORDERED: allopurinoL 300 MG TAB PO SCH (21:00)
[2023-07-28] MEDS ORDERED: FAMOTIDINE 20 MG TAB PO SCH (21:00)
[2023-07-28] MEDS ORDERED: MONTELUKAST 10 MG TAB PO SCH (21:00)
[2023-07-29] MEDS ORDERED: CALCITRIOL 0.25 MCG CAP (S0169) PO SCH (09:00)
[2023-07-29] MEDS ORDERED: FUROSEMIDE 20 MG TAB PO SCH (09:00)
[2023-07-29] MEDS ORDERED: ASPIRIN 81MG ENTERIC TABLET PO SCH (09:00)
== END 2023-07-28 16:18 | disposition home or self-care (01) | DRG 69 ==
LOC: M ED 20:47 → EDBD 20:47 → M ED INP 23:46 → ENRESERV 07-28 00:11 → M PCU 07-28 00:43
PROVIDERS: ADMIT Family Medicine; ATTEND Family Medicine
DX: G45.9 Transient cerebral ischemic attack, unspecified (principal); I16.9 Hypertensive crisis, unspecified; I25.10 Atherosclerotic heart disease of native coronary artery without angina pectoris; I12.9 Hypertensive chronic kidney disease with stage 1 through stage 4 chronic kidney disease, or unspecified chronic kidney disease; N18.30 Chronic kidney disease, stage 3 unspecified; R26.89 Other abnormalities of gait and mobility; R29.6 Repeated falls; I73.9 Peripheral vascular disease, unspecified; E11.22 Type 2 diabetes mellitus with diabetic chronic kidney disease; E11.51 Type 2 diabetes mellitus with diabetic peripheral angiopathy without gangrene; E11.42 Type 2 diabetes mellitus with diabetic polyneuropathy; F32.A Depression, unspecified; M19.90 Unspecified osteoarthritis, unspecified site; K21.9 Gastro-esophageal reflux disease without esophagitis; Z95.5 Presence of coronary angioplasty implant and graft; Z66 Do not resuscitate; R20.0 Anesthesia of skin; Z98.41 Cataract extraction status, right eye; Z98.42 Cataract extraction status, left eye; Z90.49 Acquired absence of other specified parts of digestive tract; Z87.891 Personal history of nicotine dependence; Z79.82 Long term (current) use of aspirin; Z79.4 Long term (current) use of insulin; Z79.899 Other long term (current) drug therapy; Z20.822 Contact with and (suspected) exposure to COVID-19; Z98.890 Other specified postprocedural states

== ENCOUNTER → 2024-03-19 | Outpatient (CLI) | payer MEDICARE, OTHER ==
[~2024-03-19] MED LIST changes: -ASPI-161 PO; +ASPI-615 PO; +CLOP75TA2 PO; +FURO20TA2 PO; +LANTINJ4 SC; +PRESCAP PO
[2024-03-19 17:04] LABS: RSV AMPLIFICATION NEGATIVE (NEGATIVE)
[2024-03-19 19:12] LABS: URIC ACID 6.6 MG/DL (3.7-9.2)
[2024-03-19 19:16] LABS: PTH INTACT 85.2 PG/ML (18.5-88.0)
== END ==
LOC: M WUC 13:15
PROVIDERS: ATTEND Nurse Practitioner Adult Health
DX: R05.9 Cough, unspecified (principal)